=== PATIENT | male | born 1995 | race Two or more races ===

== ENCOUNTER 2018-12-22 12:03 | Emergency (ER) | payer SELFPAY ==
[~2018-12-22] VITALS: Ht 175.3 cm; Wt 77.1 kg
[2018-12-22 12:15] VITALS: BP 124/82
[2018-12-22] MEDS ORDERED: LIDOCAINE 1% HCL (LOCAL ANESTH.) INJ 20ML MDV IJ ONE ×2 (13:15→14:00)
[2018-12-22] MEDS ORDERED: TETANUS-DIPTH-ACEL PERTUSSIS 0.5ML SYRG IM ONE (14:00)
[2018-12-22] MEDS ORDERED: cefTRIAXone SOD 1,000 MG VL IM ONE (14:00)
== END 2018-12-22 15:28 | disposition home or self-care (01) ==
LOC: EDBD 12:03 → ER 12:08
DX: S60.352A Superficial foreign body of left thumb, initial encounter (principal); F17.210 Nicotine dependence, cigarettes, uncomplicated; W25.XXXA Contact with sharp glass, initial encounter; Y93.89 Activity, other specified; Y99.8 Other external cause status; Y92.89 Other specified places as the place of occurrence of the external cause
CPT/HCPCS: 10120; 73130; 73140; 90471; 90715; 96372; 99284; J0696; J2001